=== PATIENT | female | born 1990 | race Caucasian/White ===

== ENCOUNTER 2017-11-03 15:37 | Emergency (ER) | payer OTHER, MEDICAID ==
[~2017-11-03] VITALS: Ht 152.4 cm; Wt 59.0 kg
[~2017-11-03 15:37] MED LIST: DHA PRENATAL200 MG PO; PRENATAL
[2017-11-03 16:27] LABS: URINE BILIRUBIN NEGATIVE (Negative); URINE BLOOD NEGATIVE (Negative); URINE CLARITY CLEAR; URINE COLOR YELLOW; URINE GLUCOSE-RANDOM NEGATIVE (Negative); URINE KETONES NEGATIVE (Negative); URINE LEUKOCYTES NEGATIVE (Negative); URINE NITRITE NEGATIVE (Negative); URINE PROTEIN NEGATIVE (Negative); URINE SPECIFIC GRAVITY 1.025 (1.005-1.030); URINE UROBILINOGEN 0.2 E.U./dl (0.2-1.0)
[2017-11-03 17:34] VITALS: BP 116/89
== END 2017-11-03 17:35 | disposition home or self-care (01) ==
LOC: M.ERS 15:37
PROVIDERS: Physician Assistant Surgical
DX: K59.00 Constipation, unspecified (principal)